=== PATIENT | male | born 1965 | race Caucasian/White ===

== ENCOUNTER → 2016-11-29 12:41 | Day surgery (SDC) | payer OTHER ==
[2014-11-28 12:39] VITALS: BP 124/48
--- NOTE | 2014-11-29 07:02 | OP ---
DATE OF OPERATION: 11/28/14 [facility]: [facility] DATE OF : 67 ATTENDING SURGEON: Myrna Rizvi MD CAMPER ASSEMBLER: SANJEEV Nicole ANESTHESIOLOGIST: Dr. Lucio. ANESTHESIA: General. PRE-OP DIAGNOSIS: Left knee medial meniscal tear. POST-OP DIAGNOSIS: Left knee medial meniscal tear, severe patellofemoral arthritis. OPERATIVE PROCEDURE: Left knee arthroscopy with partial medial meniscectomy and patellofemoral chondroplasty. COMPLICATIONS: None. ESTIMATED BLOOD LOSS: Less than 25 cc. SPECIMEN: None. BRIEF HISTORY/INDICATIONS: Mr. Clements is a 49-year-old gentleman with chronic and increasing left knee pain. He was found on plain radiographs and MRI to have some mild arthritis as well as a medial meniscal tear. He did have meniscal symptoms. He failed conservative treatment with rest, activity modification, intraarticular injection, and anti-inflammatories. He wished to proceed with left knee arthroscopy with partial meniscectomy and possible chondroplasty. Informed consent was obtained from the patient. He understood the risks of the surgery included, but were not limited to bleeding, infection , damage to nearby structures, continued pain, need for further surgery, stroke , heart attack, blood clot, and . He wished to proceed. INTRAOPERATIVE FINDINGS: Intraoperatively, the patient was noted to have a degenerative type complex meniscal tear involving the posterior one-half of the medial meniscus. This involved the white-white and white-red zones. He was also noted to have some grade 2 and 3 Outerbridge cartilage changes in the medial compartment involving the tibial plateau and medial femoral condyle. No large areas of exposed subchondral bone. The patellofemoral compartment had more severe degenerative changes. These were grade 3 and 4 Outerbridge cartilage changes with exposed subchondral bone along the majority of the medial patellar facet and a significant amount of the trochlear groove. DESCRIPTION OF PROCEDURE: Mr. Clements was identified in the preanesthesia unit. His left lower extremity was marked as the correct operative side. Informed consent was signed and placed in the chart. The patient was taken to the operating room and placed under general anesthesia without difficulty. Thigh high tourniquet was placed on the left thigh, but was not inflated. Left lower extremity was prepped and draped in the usual sterile fashion. Preop time -out was made to correctly identify the patient's side and site. Appropriate perioperative antibiotics were given within 1 hour of incision. A 1.5 cm standard anterolateral portal incision was made with a 15 blade and carried down through the skin and capsule. Trocar was introduced and light/ water sources were turned on. Immediate visualization of the suprapatellar pouch was made possible. Suprapatellar pouch had no obvious abnormality. Patellofemoral compartment immediately showed evidence of advanced arthritic disease with exposed subchondral bone along the medial patellar facet and trochlear groove. There were multiple cartilage flaps here. Medial compartment showed no obvious plica or loose body. Medial gutter showed no obvious plica or loose body. Medial compartment showed a medial meniscal tear involving the posterior 50% of the meniscus. This is a degenerative type complex tear. Some cartilage changes involving the tibial plateau and medial femoral condyle. This was moderate arthritic change. ACL appeared to be intact. Lateral compartment showed no advanced arthritis or obvious meniscal tear. Lateral gutter showed showed no obvious plica or loose body. Under direct visualization, a medial portal incision was made with a 15 blade. Probe was introduced and a second tour of the knee joint was performed. Posteromedial meniscus was found to have degenerative type longitudinal and radial tear involving the posterior body and horn of the medial meniscus. This involved the white-white and white-red zones mainly. Straight biter and shaver were used to perform partial medial meniscectomy until a smooth border of the meniscus was obtained. Next, the radiofrequency ablation wand was used to remove some inflamed soft tissue from the anterior joint line. Patellofemoral chondroplasty was then performed with a radiofrequency ablation wand. Any cartilage flaps or frayed edges were carefully smoothed. All instruments were carefully removed. The knee was copiously irrigated with sterile saline. The incisions were closed with 3-0 nylon sutures. Intraarticular injection of 80 mg of Depo-Medrol and 6 cc 0.25% Marcaine was placed in the knee joint. Sterile Xeroform, 4x4s, and Burke wrap were placed over the incisions. Cold pack was placed over this. The patient's anesthesia was reversed without difficulty. He was taken to the PACU in stable condition. Intended weight-bearing will be weightbearing as tolerated. Intended DVT prophylaxis will be aspirin 325 mg p.o. b.i.d. Followup in 10 to 14 days for suture removal. [id number]/[facility] #: [id number] [facility]
[~2016-11-29 12:41] MED LIST: Buffered Lidocaine 1% SYR 3ML* 3 ML/SYR SYRINGE INJ ONE; Bupivacaine 0.5% SDV PF* 30 ML VIAL ONE; CLINDAMYCIN 900 MG IV ONE; Dexamethasone IV* 4 MG/ML 1 ML (4 MG) ONE; EPINEPHrine AMP 1 MG/ML ONE; Famotidine IV* 10 MG/ML 2 ML (20 mg) ONE; Phenylephrine INJ* 10 MG/ML 1 ML VIAL (10 MG) ONE; methylPREDNISolone ACETATE 80* 80 MG/ML 1 ML VIAL ONE
== END | disposition home or self-care (01) ==
LOC: OR 11-28 07:10
PROVIDERS: ATTEND Orthopaedic Surgery Adult Reconstructive Orthopaedic Surgery
DX: [UNRECOGNIZED DIAGNOSIS CODE] (principal)
CPT/HCPCS: J0171; J1100